=== PATIENT | male | born 1970 | race Caucasian/White ===

== ENCOUNTER 2023-12-06 09:36 | Outpatient (CLI) | payer OTHER, SELFPAY | END 2023-12-06 09:37 | disposition home or self-care (01) | PROVIDERS: PCP Family Medicine; Visit Provider Family Medicine | DX: E11.59 Type 2 diabetes mellitus with other circulatory complications (principal); E78.5 Hyperlipidemia, unspecified; I15.2 Hypertension secondary to endocrine disorders; Z79.85 Long-term (current) use of injectable non-insulin antidiabetic drugs | CPT/HCPCS: 80061; 82043; 82570; G0103 ==

== ENCOUNTER 2024-03-13 14:10 | Outpatient (CLI) | payer OTHER, SELFPAY | END 2024-03-13 14:11 | disposition home or self-care (01) | LOC: LKVREF 14:11 | PROVIDERS: PCP Family Medicine; Visit Provider Family Medicine | DX: E78.2 Mixed hyperlipidemia (principal) | CPT/HCPCS: 80061 ==

== ENCOUNTER 2024-05-15 15:24 | Outpatient (CLI) | payer OTHER, SELFPAY | END 2024-05-15 15:25 | disposition home or self-care (01) | LOC: LKVREF 15:24 | PROVIDERS: PCP Family Medicine; Visit Provider Family Medicine | DX: I10 Essential (primary) hypertension (principal); E11.69 Type 2 diabetes mellitus with other specified complication; E78.5 Hyperlipidemia, unspecified | CPT/HCPCS: 80076 ==

== ENCOUNTER 2024-09-30 15:05 | Outpatient (CLI) | payer OTHER, SELFPAY | END 2024-09-30 15:06 | disposition home or self-care (01) | LOC: LKVREF 15:06 | PROVIDERS: PCP Family Medicine; Visit Provider Family Medicine | DX: E11.42 Type 2 diabetes mellitus with diabetic polyneuropathy (principal) | CPT/HCPCS: 84681 ==

== ENCOUNTER 2024-10-19 15:04 | Outpatient (CLI) | payer OTHER, SELFPAY | END 2024-10-19 15:05 | disposition home or self-care (01) | LOC: LKVREF 15:36 | PROVIDERS: PCP Family Medicine; Visit Provider Family Medicine | DX: E11.42 Type 2 diabetes mellitus with diabetic polyneuropathy (principal) | CPT/HCPCS: 82947 ==

== ENCOUNTER 2024-10-30 11:51 | Outpatient (CLI) | payer OTHER, SELFPAY | END 2024-10-30 11:52 | disposition home or self-care (01) | LOC: LKVREF 11:53 | PROVIDERS: PCP Family Medicine; Visit Provider Family Medicine | DX: Z11.4 Encounter for screening for human immunodeficiency virus [HIV] (principal) | CPT/HCPCS: 86703 ==

== ENCOUNTER 2025-02-12 14:30 | Outpatient (CLI) | payer OTHER, SELFPAY | END 2025-02-12 14:31 | disposition home or self-care (01) | PROVIDERS: PCP Family Medicine; Visit Provider Family Medicine | DX: E78.5 Hyperlipidemia, unspecified (principal) | CPT/HCPCS: 80061 ==

== ENCOUNTER 2025-10-08 08:57 | Outpatient (CLI) | payer OTHER, SELFPAY | END 2025-10-08 08:58 | disposition home or self-care (01) | PROVIDERS: PCP Family Medicine; Visit Provider Family Medicine | DX: E11.42 Type 2 diabetes mellitus with diabetic polyneuropathy (principal); E78.5 Hyperlipidemia, unspecified | CPT/HCPCS: 80048; 80061 ==